=== PATIENT | female | born 1955 | race Caucasian/White ===

== ENCOUNTER 2017-09-05 10:09 | Emergency (ER) | payer BC ==
--- NOTE | 2017-09-05 10:45 | Emergency Department Record ---
History of Present Illness - General Chief Complaint: Cough Stated Complaint: COUGH Time Seen by Provider: 09/05/17 10:31 Source: Patient Mode of Arrival: Ambulatory Limitations: No limitations - History of Present Illness Initial Comments: The patient is here due to a 4 day hx of cough, congestion and a ST. She is flying home to [place] tomorrow. There has been no fever, chills, vomiting, SOB , SABRINA, or DRAPER. MD Complaint: Cough, Sore throat Onset/Timin -: Days(s) Severity: Mild - Related Data Home Medications Medication Instructions Recorded Confirmed Last Taken Lisinopril 20 mg PO 09/05/17 09/04/17 Metoprolol Succinate 50 mg PO 09/05/17 09/04/17 Ropinirole HCl [Requip] 1 mg PO 09/05/17 09/04/17 Previous Rx's Medication Instructions Recorded Azithromycin [Zithromax] 250 mg PO ASDIR #6 tab 09/05/17 Benzonatate [Tessalon Perle] 100 mg PO TID #15 capsule 09/05/17 Allergies Allergy/AdvReac Type Severity Reaction Status Date / Time No Known Drug Allergies Allergy Verified 09/05/17 10:16 Travel Screening - Travel/Exposure Within Last 30 Days Have you traveled within the last 30 days?: No - Travel/Exposure Within Last Year Have you traveled outside the [place] in the last year?: No - Additonal Travel Details Have you been exposed to anyone with a communicable illness?: No Review of Systems Constitutional: Reports: Malaise. Denies: Chills, Fever Eyes: Denies: Eye discharge ENT: Reports: Congestion Respiratory: Reports: Cough. Denies: Dyspnea Past Medical History - SOCIAL HISTORY Smoking Status: Never smoker Alcohol Use: None Drug Use: None - RESPIRATORY Hx Respiratory Disorders: No - CARDIOVASCULAR Hx Cardio Disorders: Yes Hx Hypertension: Yes (for last 10 to 15 years) - NEURO Hx Neuro Disorders: No - GI Hx GI Disorders: No - Hx Genitourinary Disorders: No - ENDOCRINE Hx Endocrine Disorders: No - MUSCULOSKELETAL Hx Musculoskeletal Disorders: Yes Comment:: right femur fracture and right total knee replacement - PSYCH Hx Psych Problems: No - HEMATOLOGY/ONCOLOGY Hx Hematology/Oncology Disorders: No Family Medical History Any Significant Family History?: No Physical Exam - General General Appearance: Alert, Oriented x3, Cooperative, No acute distress - Head Head exam: Atraumatic, Normocephalic, Normal inspection - Eye Eye exam: Normal appearance, PERRL - ENT ENT exam: Mucous membranes moist. negative: Normal exam, Mucous membranes dry, Normal orophraynx, TM's normal bilaterally (The R ear canal is blocked with cerumen. The L TM is normal.) Throat exam: Tonsillar erythema. negative: Normal inspection, Tonsillomegaly, Tonsillar exudate - Neck Neck exam: Normal inspection, Full ROM. negative: Lymphadenopathy, Meningismus , Tenderness - Respiratory Respiratory exam: Normal lung sounds bilaterally. negative: Respiratory distress - Cardiovascular Cardiovascular Exam: Regular rate, Normal rhythm, Normal heart sounds - GI/Abdominal GI/Abdominal exam: Soft, Normal bowel sounds. negative: Tenderness - Extremities Extremities exam: Normal inspection, Full ROM, Normal capillary refill. negative: Tenderness - Neurological Neurological exam: Alert, Normal gait. negative: Abnormal gait, Motor sensory deficit Course Vital Signs 09/05/17 10:15 Temperature 97.5 F L Pulse Rate 68 Respiratory 18 Rate Blood Pressure 189/101 Pulse Ox 98 - Reevaluation(s) Reevaluation #1: The patient is doing well at this time. I did explain to her that it appears she has a URI that most likely is viral but could be bacterial. We will place her on a Zpak and Tessaon and she is to see her PCP later this week if not better. 09/05/17 10:42 Disposition Disposition: Discharge Clinical Impression: Upper respiratory infection, acute Disposition: Home, Self-Care Condition: (2) Stable Instructions: Cold Symptoms (ED) Additional Instructions: Please take the medicines as directed and see your PCP if not better in 3 days. Return to the ER for any worsening symptoms. Also please see your PCP for recheck of your high blood pressure. Prescriptions: Azithromycin [Zithromax] 250 mg PO ASDIR #6 tab Benzonatate [Tessalon Perle] 100 mg PO TID #15 capsule Forms: Patient Portal Access Time of Disposition: 10:45 Quality - Quality Measures Quality Measures: N/A - Blood Pressure Screening View Details: Yes Does Patient Have Any of the Following: Active Dx of HTN Blood Pressure Classification: Hypertensive Reading Systolic Measurement: 189 Diastolic Measurement: 101 Screening for High Blood Pressure: Patient Exclusion, Hx of HTN [[id number]]
== END 2017-09-05 11:09 | disposition home or self-care (01) ==
LOC: ER 10:09
DX: J06.9 Acute upper respiratory infection, unspecified (principal); R05 Cough
CPT/HCPCS: 99282